=== PATIENT | male | born 1985 | race Hispanic/Latino ===

== ENCOUNTER → 2020-06-11 | Outpatient (CLI) | payer OTHER | END | disposition home or self-care (01) | LOC: RAH 09:36 | PROVIDERS: ATTEND Nurse Practitioner Adult Health | DX: Z13.6 Encounter for screening for cardiovascular disorders (principal) | CPT/HCPCS: 75571 ==

== ENCOUNTER → 2021-02-20 | Outpatient (CLI) | payer OTHER | END | disposition home or self-care (01) | LOC: SHCH 12:46 | PROVIDERS: ATTEND Internal Medicine Cardiovascular Disease | DX: R07.9 Chest pain, unspecified (principal) | CPT/HCPCS: 93306; 93356 ==

== ENCOUNTER → 2023-07-29 | Outpatient (CLI) | payer OTHER | END | disposition home or self-care (01) | LOC: RAH 10:00 | PROVIDERS: ATTEND Nurse Practitioner Family | DX: E04.2 Nontoxic multinodular goiter (principal); R59.1 Generalized enlarged lymph nodes | CPT/HCPCS: 76536 ==

== ENCOUNTER 2024-01-23 05:54 | Observation (INO) | payer OTHER ==
[~2024-01-23] VITALS: Ht 177.8 cm; Wt 126.5 kg
[2024-01-23 06:24] LABS: BASOPHILS # (AUTO) 0.05 K/uL (0.00-0.20); BASOPHILS % (AUTO) 0.8 % (0.0-5.0); EOSINOPHILS # (AUTO) 0.25 K/uL (0.00-0.70); EOSINOPHILS % (AUTO) 3.9 % (0.0-8.0); IMMATURE GRANULOCYTE ABSOLUTE 0.02 K/uL (0-1); LYMPHOCYTES # (AUTO) 2.2 K/uL (1.0-4.8); LYMPHOCYTES % (AUTO) 35.1 % (21.0-51.0); MEAN CORPUSCULAR HEMOGLOBIN 28.2 pg (27.0-33.0); MEAN CORPUSCULAR HGB CONC 33.6 g/dL (32.0-36.0); MONOCYTES # (AUTO) 0.8 K/uL (0.1-1.0); MONOCYTES % (AUTO) 12.2 % (3.0-13.0); NEUTROPHILS % (AUTO) 47.7 % (40.0-77.0); PLATELET COUNT (AUTO) 263 K/uL (130-400); RED BLOOD CELL COUNT(AUTO) 5.36 MIL/uL (4.50-6.20); RED CELL DISTRIBUTION WIDTH 12.8 % (11.0-15.5); WHITE BLOOD COUNT (AUTO) 6.4 K/uL (4.8-10.8)
[2024-01-23 06:36] LABS: INR 0.96 (0.85-1.15); PROTHROMBIN TIME 10.4 SEC (9.6-11.6)
[2024-01-23 06:37] LABS: PARTIAL THROMBOPLASTIN TIME 27.5 SEC (26.3-35.5)
[2024-01-23] MEDS ORDERED: IOHEXOL 350 MG/ML 100ML INFUS..BTL IV ONE (06:42)
[2024-01-23 06:43] LABS: ALBUMIN 3.9 g/dL (3.5-5.0); BILIRUBIN,TOTAL 0.3 mg/dL (0.2-1.0); TOTAL PROTEIN, SERUM 7.4 g/dL (6.0-8.3)
[2024-01-23 09:30] LABS: APPEARANCE,URINE CLEAR (CLEAR); BILIRUBIN,URINE NEGATIVE (NEGATIVE); COLOR,URINE LIGHT-YELLOW (YELLOW); GLUCOSE, URINE (UA) NEGATIVE (NEGATIVE); KETONES,URINE NEGATIVE (NEGATIVE); LEUKOCYTE ESTERASE ,URINE NEGATIVE Leu/uL (NEGATIVE); NITRATE,URINE NEGATIVE (NEGATIVE); OCCULT BLOOD,URINE NEGATIVE (NEGATIVE); PROTEIN,URINE NEGATIVE (NEGATIVE); UROBILINOGEN,URINE 0.2 mg/dL (0.2-1.0)
[2024-01-23 09:32] LABS: ADD UA MICROSCOPIC NO
[2024-01-23] MEDS: FAMOTIDINE 20MG TAB PO SCH (09:59)
[2024-01-23] MEDS: 0.9%NACL 1000ML 1,000 ML IV SCH (09:59)
[2024-01-23] MEDS ORDERED: ONDANSETRON 4MG INJ IVP PRN (10:00)
[2024-01-23] MEDS: ASPIRIN 81MG CHEW TAB PO SCH (10:00)
[2024-01-23] MEDS ORDERED: ACETAMINOPHEN 500 MG TABLET PO PRN (10:00)
[2024-01-23 10:08] LABS: HEMOGLOBIN A1C 5.4 % (4.0-6.0)
[2024-01-23 10:13] LABS: AMPHET/METH SCREEN,URINE NEGATIVE (NEGATIVE); BARBITURATE SCREEN, URINE NEGATIVE (NEGATIVE); BENZODIAZEPINES SCREEN,URINE NEGATIVE (NEGATIVE); CANNABINOID SCREEN,URINE NEGATIVE (NEGATIVE); COCAINE SCREEN,URINE NEGATIVE (NEGATIVE); OPIATE SCREEN,URINE NEGATIVE (NEGATIVE); PHENCYCLIDINE SCREEN,URINE NEGATIVE (NEGATIVE)
[2024-01-23 10:18] LABS: THYROID STIMULATING HORMONE 6.4 uIU/mL (0.36-3.74)
[2024-01-23] MEDS ORDERED: 0.9%NACL 1000ML 1,000 ML IV SCH (10:30)
[2024-01-23] MEDS ORDERED: HYDRALAZINE 20MG/ML VIAL IV PRN (12:00)
[2024-01-23] MEDS: LOSARTAN 25 MG TABLET PO SCH (12:48)
[2024-01-23 15:47] VITALS: O2SAT 97
[2024-01-23 16:00] VITALS: BP 131/79; PULSE 72; RESP 15
[2024-01-23] MEDS ORDERED: KETOROLAC 15MG/ML VIAL (15MG/ML) IV PRN (16:30)
[2024-01-23] MEDS ORDERED: LOSA1TAB37 PO (16:37)
[2024-01-23] MEDS ORDERED: LISD40CA PO (16:37)
[2024-01-23 20:00] VITALS: BP 143/66; PULSE 79; RESP 20; O2SAT 97
[2024-01-23] MEDS: ATORVASTATIN 20 MG TABLET PO SCH (20:36)
[2024-01-23] MEDS: FISH OIL 1000 MG/CAP PO SCH (20:36)
[2024-01-24] VITALS: BP 127/74; PULSE 76; RESP 20
[2024-01-24 04:00] VITALS: BP 116/77; PULSE 75; RESP 18
[2024-01-24 08:00] VITALS: BP 131/83; PULSE 67; RESP 14; O2SAT 97
[2024-01-24] MEDS ORDERED: FAMO20TA8 PO (08:35)
[2024-01-24] MEDS ORDERED: FISH1CAP20 PO (08:35)
[2024-01-24] MEDS ORDERED: ATOR20TA65 PO (08:35)
[2024-01-24] MEDS ORDERED: ASPI-1005 PO (08:35)
[2024-01-24] MEDS ORDERED: LOSARTAN 25 MG TABLET PO SCH (09:00)
[2024-01-24] MEDS ORDERED: ENOXAPARIN SODIUM 40 MG/0.4 ML SYRINGE SQ SCH (09:00)
== END 2024-01-24 10:35 | disposition home or self-care (01) ==
LOC: EDH 05:54 → EDHIP 09:49 → 4AH 15:48
PROVIDERS: ADMIT Internal Medicine; ATTEND Internal Medicine
DX: G43.109 Migraine with aura, not intractable, without status migrainosus (principal); I10 Essential (primary) hypertension; E78.5 Hyperlipidemia, unspecified; E66.01 Morbid (severe) obesity due to excess calories; G47.33 Obstructive sleep apnea (adult) (pediatric); E06.3 Autoimmune thyroiditis; Z68.41 Body mass index [BMI] 40.0-44.9, adult; Z86.2 Personal history of diseases of the blood and blood-forming organs and certain disorders involving the immune mechanism; Z79.82 Long term (current) use of aspirin; Z79.899 Other long term (current) drug therapy
CPT/HCPCS: 96360; 99285; 83036; 84443; 83735; 84484; 80061; 80053; 80305; 85025; 85610; 85730; 82948; 81003; 36415; 70450; 70496; 70498; 93306; 70551; 93005; G0378 ×24; J7030; Q9967; 76376; J1650